=== PATIENT | female | born 1970 | race Caucasian/White ===

== ENCOUNTER 2022-02-22 16:07 | Emergency (ER) | payer BC, MEDICAID ==
[~2022-02-22] VITALS: Ht 162.6 cm; Wt 68.2 kg
[2022-02-22] VITALS (18 sets, daily range): BP systolic 108–161; BP diastolic 69–102
[2022-02-22 16:44] LABS: HEMATOCRIT 39.2 % (37.0-47.0); HEMOGLOBIN 13.1 g/dl (12.0-16.0); IMMATURE GRANULOCYTES 0.2 % (0.0-5.0); MEAN CELL VOLUME 89.5 fL CALC (80.0-100.0); MEAN CORPUSCULAR HGB 29.9 pG CALC (26.0-32.0); MEAN CORPUSCULAR HGB CONC 33.4 g/dL CAL (32.0-36.0); NEUT# 3.9 thou/uL (2.00-7.15); RED BLOOD COUNT 4.38 mill/uL (4.20-5.60); RED CELL DISTRI WIDTH 11.6 % (11.5-15.5)
[2022-02-22 16:54] LABS: ALBUMIN 4.1 g/dL (3.2-5.0); ALKALINE PHOSPHATASE 440 u/l (38-126); ANION GAP 16 (6-22 (CALC)); BILIRUBIN, TOTAL 1.4 mg/dL (0.0-1.4); BUN 3 mg/dL (7-17); BUN/CREATININE RATIO 4 (12-20 (CALC)); CARBON DIOXIDE 25 mmol/l (22-30); CHLORIDE 103 mmol/l (95-108); CREATININE 0.8 mg/dL (0.5-1.0); GFR FOR AFR.AMER. > 60 ML/MIN (>=60 (CALC)); GFR OTHER RACES > 60 ML/MIN (>=60 (CALC)); LIPASE 117 u/l (23-300); POTASSIUM 2.8 mmol/l (3.5-5.1); SODIUM 142 mmol/l (137-146); TOTAL PROTEIN 7.5 g/dL (6.3-8.2)
[2022-02-22 17:05] LABS: SGOT/AST 1352 u/l (14-36)
== END 2022-02-22 22:33 | disposition home or self-care (01) | DRG 446 ==
LOC: ED 16:07
PROVIDERS: Emergency Medicine
DX: K81.0 Acute cholecystitis (principal); R74.02 Elevation of levels of lactic acid dehydrogenase [LDH]; R74.8 Abnormal levels of other serum enzymes; E87.6 Hypokalemia; R56.9 Unspecified convulsions

== ENCOUNTER 2022-07-31 18:37 | Observation (INO) | payer OTHER ==
[~2022-07-31] VITALS: Ht 162.6 cm; Wt 63.4 kg
[2022-07-31 18:56] LABS: BASO% 0.5 % (0-3); EOS% 0.5 % (0-8); HEMATOCRIT 45.1 % (37.0-47.0); HEMOGLOBIN 14.6 g/dl (12.0-16.0); IMMATURE GRANULOCYTES 0.1 % (0.0-5.0); LYMPH% 25.6 % (15-41); MEAN CELL VOLUME 91.5 fL CALC (80.0-100.0); MEAN CORPUSCULAR HGB 29.6 pG CALC (26.0-32.0); MEAN CORPUSCULAR HGB CONC 32.4 g/dL CAL (32.0-36.0); MONO% 5.5 % (2-13); NEUT# 7.58 thou/uL (2.00-7.15); NEUT% 67.8 % (42-76); RED BLOOD COUNT 4.93 mill/uL (4.20-5.60); RED CELL DISTRI WIDTH 12.5 % (11.5-15.5)
[2022-07-31 19:01] VITALS: BP 116/70
[2022-07-31 19:07] LABS: CREATININE 1.2 mg/dL (0.5-1.0); POTASSIUM 3.3 mmol/l (3.5-5.1); TOTAL PROTEIN 8.6 g/dL (6.3-8.2)
[2022-07-31 19:11] LABS: ALBUMIN 5.2 g/dL (3.2-5.0); BILIRUBIN, TOTAL 0.7 mg/dL (0.02-1.3)
[2022-07-31 19:16] VITALS: BP 102/62
[2022-07-31 20:16] LABS: URINE BILIRUBIN - DIPSTICK NEGATIVE (NEGATIVE); URINE BLOOD DIPSTICK NEGATIVE (NEGATIVE); URINE COLOR YELLOW; URINE GLUCOSE - DIPSTICK NEGATIVE (NEGATIVE); URINE KETONE 15 mg/dL (NEGATIVE); URINE LEUK ESTERASE NEGATIVE (NEGATIVE); URINE NITRITE - DIPSTICK NEGATIVE (Negative); URINE PH 6.5 (4.5-8.0); URINE PROTEIN - DIPSTICK NEGATIVE (NEG-TRACE); URINE UROBILINOGEN - DIPSTICK 0.2 E.U./dL (0.2)
[2022-07-31 21:30] VITALS: BP 126/70
[2022-07-31 21:40] VITALS: BP 103/65
[2022-07-31 21:45] VITALS: BP 127/74
[2022-07-31 22:15] VITALS: BP 101/68
[2022-08-01 04:05] VITALS: BP 110/59
[2022-08-01 05:50] VITALS: BP 113/66
[2022-08-01 08:33] LABS: ALKALINE PHOSPHATASE 100 u/l (38-126); ANION GAP 12 (6-22 (CALC)); BUN 7 mg/dL (7-17); BUN/CREATININE RATIO 7 (12-20 (CALC)); CARBON DIOXIDE 18 mmol/l (22-30); CHLORIDE 117 mmol/l (95-108); CREATININE 0.9 mg/dL (0.5-1.0); GFR FOR AFR.AMER. > 60 ML/MIN (>=60 (CALC)); GFR OTHER RACES > 60 ML/MIN (>=60 (CALC)); POTASSIUM 3.7 mmol/l (3.5-5.1); SGOT/AST 66 u/l (14-36); SODIUM 143 mmol/l (137-146)
[2022-08-01 08:44] LABS: ALBUMIN 3.4 g/dL (3.2-5.0); BILIRUBIN, TOTAL 0.3 mg/dL (0.02-1.3); TOTAL PROTEIN 5.8 g/dL (6.3-8.2)
[2022-08-01] MEDS ORDERED: CIPROFLOXACN500 MG PO (11:28)
[2022-08-01] MEDS ORDERED: METRONIDAZOLE500 MG PO (11:30)
== END 2022-08-01 12:56 | disposition home or self-care (01) ==
LOC: ED 18:37 → ED-I 20:45 → ED 20:47 → MS2 20:48
PROVIDERS: Family Medicine; ADMIT Internal Medicine; ATTEND Internal Medicine
DX: M79.3 Panniculitis, unspecified (principal); K31.84 Gastroparesis; K52.9 Noninfective gastroenteritis and colitis, unspecified; F41.9 Anxiety disorder, unspecified; F32.A Depression, unspecified; M79.7 Fibromyalgia; F17.290 Nicotine dependence, other tobacco product, uncomplicated; Z86.73 Personal history of transient ischemic attack (TIA), and cerebral infarction without residual deficits
CPT/HCPCS: G0378; Q9967